=== PATIENT | male | born 1970 | race Caucasian/White ===

== ENCOUNTER → 2018-12-01 | Emergency (ER) | payer MEDICAID ==
[~2018-12-01] VITALS: Ht 162.6 cm; Wt 53.2 kg
[~2018-12-01] MED LIST: IBUP-1542 PO
[2018-12-01 13:17] VITALS: BP 117/71; PULSE 101; RESP 20; Ht 162.6 cm; Wt 53.2 kg
--- NOTE | 2018-12-01 15:40 | ERD ---
ER Documentation Chief Complaint Chief Complaint c/o pain on left sole of foot x2 weeks, denies trauma HPI 48-year-old male, previously healthy, presents the emergency department, complaining of 2 months we worsening of bilateral plantar pain, sharp, worse in the mornings, 5/10. No treatment attempted at this time. The patient denies any trauma. Denies distal numbness, tingling or weakness. No rashes. No fever or chills. ROS All systems reviewed and are negative except as per history of present illness. Medications Home Meds Active Scripts Ibuprofen* (Motrin*) 600 Mg Tab, 600 MG PO Q8, #15 TAB Prov:ABENA NICHOLAS MD 12/01/18 Ibuprofen* (Motrin*) 600 Mg Tab, 600 MG PO Q8, #10 Prov:RAKESH YA DO 10/01/15 Allergies Allergies: Coded Allergies: No Known Allergy (Unverified , 10/01/15) PMhx/Soc Medical and Surgical Hx: pt denies Medical Hx History of Surgery: Yes (cholecystectomy) Anesthesia Reaction: No Hx Neurological Disorder: No Hx Respiratory Disorders: No Hx Cardiac Disorders: No Hx Psychiatric Problems: No Hx Miscellaneous Medical Probl: No Hx Alcohol Use: Yes Hx Substance Use: No Hx Tobacco Use: Yes Smoking Status: Current every day smoker Physical Exam Vitals Vital Signs Date Temp Pulse Resp B/P (MAP) Pulse Ox O2 O2 Flow FiO2 Time Delivery Rate 12/01/18 97.1 101 20 117/71 97 13:17 (86) Physical Exam Const: No acute distress Head: Atraumatic Eyes: Normal Conjunctiva ENT: Normal External Ears, Nose and Mouth. Neck: Full range of motion. No meningismus. Resp: Clear to auscultation bilaterally Cardio: Regular rate and rhythm, no murmurs Abd: Soft, non tender, non distended. Normal bowel sounds Skin: No petechiae or rashes Back: No midline or flank tenderness Ext: No cyanosis, or edema Neur: Awake and alert Psych: Normal Mood and Affect Procedures/MDM Bilateral plantar pain: no red flags. Differential diagnosis include but not limited to: Foot sprain/strain, ligament injury, arthritis; low suspicion for fracture, dislocation, septic arthritis. Neurovascular exam grossly intact. no clinical findings suggestive of acute infectious process, no deformity, no rashes. Physical examination and clinical presentation consistent most likely with a fasciitis Results and clinical impression discussed with patient who agrees with management. The patient is stable to be treated outpatient and will be discharged home with recommendations for ice, NSAIDs 3 times daily for 5 days and close monitoring. The patient was instructed to follow up with the primary care provider in the next 48h. If symptoms persist, worsen or new symptoms develop, then patient should return to the ED immediately. Instructions explained and given to patient with acknowledgment and demonstrated understanding. Disclaimer: Inadvertent spelling and grammatical errors are likely due to EHR/dictation software use and do not reflect on the overall quality of patient care. Also, please note that the electronic time recorded on this note does not necessarily reflect the actual time of the patient encounter. Departure Diagnosis: Primary Impression: Plantar fasciitis, bilateral Condition: Stable Additional Instructions: Muchas donald por [facility] para daily servicio. Esperamos que en daily visita a la dale de emergencia daily problema medico haya sido solucionado y que se sienta mucho mejor. Para estar seguros que daily mejoria sigue en proceso, le pedimos el favor de hacer yuni mignon de seguimiento medico con daily doctor primario en los proximos 2-4 vallejo. Lleve con usted estos documentos y las medicinas recetadas. Si yonathan sintomas empeoran, NO SE ESPERE, por favor regrese a dale de emergencia INMEDIATAMENTE. En dano que usted no tenga un mdico de atencin primaria: Llame al mdico o clnica comunitaria de referencia que aparece abajo jaimie las horas de consultorio para hacer yuni mignon para que le vean. CLINICAS: [facility] 572 [phone] [address] [facility] [phone] [address] [facility] [phone] [address] [facility] 459 [phone] [address] [facility] 665 [phone] [address] [facility] [phone] ABENA NAIDU MD Dec 01, 2018 15:40
== END | disposition home or self-care (01) ==
LOC: FTE 12:46
DX: M72.2 Plantar fascial fibromatosis (principal); F17.210 Nicotine dependence, cigarettes, uncomplicated
CPT/HCPCS: 99282

== ENCOUNTER 2019-03-29 08:50 | Emergency (ER) | payer SELFPAY ==
[~2019-03-29] VITALS: Ht 162.6 cm; Wt 48.6 kg
[2019-03-29 09:03] VITALS: BP 141/68; PULSE 98; RESP 18; Ht 162.6 cm; Wt 48.6 kg
[2019-03-29] MEDS ORDERED: KETOROLAC 60 MG INJ IM STA (09:25)
[2019-03-29] MEDS ORDERED: DEXAMETHASONE 10 MG/ML 1 ML INJ IM ONE (09:30)
[2019-03-29] MEDS ORDERED: NAPR-985 PO (09:52)
--- NOTE | 2019-03-29 13:38 | ERD ---
ER Documentation Chief Complaint Chief Complaint pain b/l legs and sole of foot x 2 months HPI History of Present Illness: 48-year-old male with no past medical history coming in today with complaint of bilateral pain to the sole of his feet that is been worsening over the past 2 months. Patient denies injury or trauma. Patient denied any signs of infection. At home pharmacological/nonpharmacological treatment for symptoms: DENIES Denies social concerns; Denies recent foreign travel ROS All systems reviewed and are negative except as per history of present illness. Medications Home Meds Active Scripts Naproxen* (Naprosyn*) 500 Mg Tablet, 500 MG PO BID PRN for PAIN AND/OR INFLAMMATION, #30 TAB Prov:CHERYL LICEA NP 03/29/19 Ibuprofen* (Motrin*) 600 Mg Tab, 600 MG PO Q8, #15 TAB Prov:ABENA NICHOLAS MD 12/01/18 Ibuprofen* (Motrin*) 600 Mg Tab, 600 MG PO Q8, #10 Prov:RAKESH YA DO 10/01/15 Allergies Allergies: Coded Allergies: No Known Allergy (Unverified , 10/01/15) PMhx/Soc History of Surgery: Yes (cholecystectomy) Anesthesia Reaction: No Hx Neurological Disorder: No Hx Respiratory Disorders: No Hx Cardiac Disorders: No Hx Psychiatric Problems: No Hx Miscellaneous Medical Probl: No Hx Alcohol Use: Yes Hx Substance Use: No Hx Tobacco Use: Yes Smoking Status: Never smoker FmHx Family History: No diabetes, No coronary disease Physical Exam Vitals Vital Signs Date Temp Pulse Resp B/P (MAP) Pulse Ox O2 O2 Flow FiO2 Time Delivery Rate 03/29/19 98.1 98 18 141/68 98 09:03 (92) Physical Exam Const: No acute distress Head: Atraumatic Eyes: Normal Conjunctiva ENT: Normal External Ears, Nose and Mouth. Neck: Full range of motion. No meningismus. Resp: Clear to auscultation bilaterally Cardio: Regular rate and rhythm, no murmurs Abd: Soft, non tender, non distended. Normal bowel sounds Skin: No petechiae or rashes Back: No midline or flank tenderness Ext: No cyanosis, or edema. Neurovascularly intact distally to bilateral lower extremities. Tenderness to palpation over bilateral heels, no breaks in skin, no signs of infection, no erythema, no warmth. Neur: Awake and alert Psych: Normal Mood and Affect Results 24 hrs Current Medications Medications Dose Sig/Soo Start Time Status Last (Trade) Ordered Route PRN Stop Time Admin Dose Reason Admin Ketorolac 60 mg ONCE STAT 03/29/19 DC 03/29/19 Tromethamine IM 09:25 09:33 (Toradol) 03/29/19 09:27 8 mg ONCE ONCE 03/29/19 DC 03/29/19 Dexamethasone IM 09:30 09:32 (Decadron) 03/29/19 09:31 Procedures/MDM ED course includes a thorough examination and history. Medications: Dexamethasone, ketorolac Imaging:-- Labs:-- Low suspicion for life-threatening medical emergency. Low suspicion for orthopedic emergency requires hospitalization or immediate surgical intervention. Low suspicion for infectious emergency that requires antibiotics. Otherwise healthy patient presenting with constellation of symptoms likely representing uncomplicated pain in both heels likely to calcaneal spurs as characterized by history, physical exam findings. No respiratory distress, otherwise relatively well appearing and nontoxic. Patient verbalized understanding of follow-up care with primary care doctor and possible referral to product safety and standards engineer for further evaluation. Patient is hemodynamically stable without any fever. Patient educated on diagnoses, prescriptions, follow-up care, return precautions. Strict return precautions g iven for worsening condition; questions answered discharge. Disposition for discharge with followup in 2 days with PCP/clinic. Departure Diagnosis: Primary Impression: Pain of both heels Condition: Stable Patient Instructions: Understanding Heel Pain, Heel Spur Referrals: [facility] YOU HAVE RECEIVED A MEDICAL SCREENING EXAM AND THE RESULTS INDICATE THAT YOU DO NOT HAVE A CONDITION THAT REQUIRES URGENT TREATMENT IN THE EMERGENCY DEPARTMENT. FURTHER EVALUATION AND TREATMENT OF YOUR CONDITION CAN WAIT UNTIL YOU ARE SEEN IN YOUR DOCTORS OFFICE WITHIN THE NEXT 1-2 DAYS. IT IS YOUR RESPONSIBILITY TO MAKE AN APPOINTMENT FOR FOLOW-UP CARE. IF YOU HAVE A PRIMARY DOCTOR --you should call your primary doctor and schedule an appointment IF YOU DO NOT HAVE A PRIMARY DOCTOR YOU CAN CALL OUR PHYSICIAN REFERRAL HOTLINE AT IF YOU CAN NOT AFFORD TO SEE A PHYSICIAN YOU CAN CHOSE FROM THE FOLLOWING [facility] [address] [facility]. [facility] [address] [facility]. [facility] [address] [facility] [address] [facility] [facility] [address] [facility]. [facility] [address] [facility]. [facility] YOU HAVE RECEIVED A MEDICAL SCREENING EXAM AND THE RESULTS INDICATE THAT YOU DO NOT HAVE A CONDITION THAT REQUIRES URGENT TREATMENT IN THE EMERGENCY DEPARTMENT. FURTHER EVALUATION AND TREATMENT OF YOUR CONDITION CAN WAIT UNTIL YOU ARE SEEN IN YOUR DOCTORS OFFICE WITHIN THE NEXT 1-2 DAYS. IT IS YOUR RESPONSIBILITY TO MAKE AN APPOINTMENT FOR FOLOW-UP CARE. IF YOU HAVE A PRIMARY DOCTOR --you should call your primary doctor and schedule and appointment IF YOU DO NOT HAVE A PRIMARY DOCTOR YOU CAN CALL OUR PHYSICIAN REFERRAL HOTLINE AT . IF YOU CAN NOT AFFORD TO SEE A PHYSICIAN YOU CAN CHOSE FROM THE FOLLOWING ON LICENSE OF [facility] INSTITUTIONS: [facility] [address] [place] [address] [facility] [address] [place] [address] [facility] [address] [place] [address] Additional Instructions: Thank you very much for allowing us to participate in your care. Your health and safety is our top priority at [facility]. It is important to read all discharge instructions and education provided in your discharge packet. *Is very important to follow-up with your primary care doctor for a possible referral to a product safety and standards engineer to see if there are other options for your heel pain. Sometimes a injection of steroid can be placed in your heel to help with pain. This is likely a bone spur that is causing your pain. You have no signs of infection.* Call your primary care doctor TOMORROW for an appointment during the next 2-4 days and bring all the information and medications prescribed. Have prescriptions filled and follow precisely the directions on the label. -Naproxen is a anti-inflammatory/pain medication; take this medication daily as prescribed for the next week to help with swelling/inflammation/pain. If the symptoms get worse and your provider is unavailable, return to the Emergency Department immediately. CHERYL LICEA NP Mar 29, 2019 13:38
== END 2019-03-29 10:20 | disposition home or self-care (01) ==
LOC: FTE 08:50
DX: M79.671 Pain in right foot (principal); M79.672 Pain in left foot; Z87.891 Personal history of nicotine dependence
CPT/HCPCS: J1100; J1885; 96372